=== PATIENT | female | born 1955 | race Caucasian/White ===

== ENCOUNTER 2017-12-20 06:38 | Inpatient (IN) | payer OTHER ==
[~2017-12-20] VITALS: Ht 172.7 cm; Wt 5.0 kg
[~2017-12-20 06:38] MED LIST: ATORVASTATIN CA40 MG PO; CALCIUM500 M1 PO; FOSAMAX70 MG PO; METAMUCIL660 G1 PO
== END 2017-12-21 13:06 | disposition home or self-care (01) | DRG 581 ==
LOC: CIR.AMB 06:38 → O/R 18:43 → SURG 18:45
PROVIDERS: Plastic Surgery; Surgery
PROC: 0HHT0NZ Insertion of Tissue Expander into Right Breast, Open Approach (ICD-10-PCS; 2017-12-20)
PROC: 0HTT0ZZ Resection of Right Breast, Open Approach (ICD-10-PCS; principal; 2017-12-20 12:30)
PROC: 07B50ZX Excision of Right Axillary Lymphatic, Open Approach, Diagnostic (ICD-10-PCS; 2017-12-20 12:30)
DX: C50.911 Malignant neoplasm of unspecified site of right female breast (principal); Z90.11 Acquired absence of right breast and nipple

== ENCOUNTER → 2018-07-18 | Day surgery (SDC) | payer OTHER | END | disposition home or self-care (01) | LOC: ADM 07-02 08:15 → CIR.AMB 07-04 08:15 | DX: C50.911 Malignant neoplasm of unspecified site of right female breast (principal); Z90.11 Acquired absence of right breast and nipple ==

== ENCOUNTER 2019-03-19 07:20 | Day surgery (SDC) | payer OTHER | END 2019-03-19 11:45 | disposition home or self-care (01) | LOC: AMB-ENDOS 07:20 | DX: D12.5 Benign neoplasm of sigmoid colon (principal) ==

== ENCOUNTER 2021-08-03 07:36 | Day surgery (SDC) | payer OTHER | END 2021-08-03 11:30 | disposition home or self-care (01) | LOC: AMB-ENDOS 07:36 | PROVIDERS: ATTEND Surgery | DX: K63.5 Polyp of colon (principal); Z20.822 Contact with and (suspected) exposure to COVID-19 ==